=== PATIENT | male | born 1980 | race Caucasian/White ===

== ENCOUNTER 2017-02-08 17:59 | Inpatient (IN) ==
[2017-02-08] MEDS ORDERED: SALINE FLUSH 10ml SYRINGE IVF PRN (18:16)
[2017-02-08] MEDS ORDERED: NS 1,000 ML IV ONE ×2 (18:26→20:21)
--- OUTSIDE RECORDS SUMMARY | 2017-02-08 18:32 | External Medical Summary ---
:1980 Author Organization [employer] Care Team Providers Name Role Phone Kenneth Barahona Provider Role Unavailable Allergies No Known Allergies Problems No Known Problems Medications No Known Medications Results No Known Results Summary Purpose eClinicalWorks Submission
--- OUTSIDE RECORDS SUMMARY | 2017-02-08 18:32 | External Medical Summary ---
:1980 Author Organization [employer] Care Team Providers Name Role Phone Kenneth Barahona Provider Role Unavailable Allergies, Adverse Reactions, Alerts Substance Reaction Event Type N.K.D.A. Info Not Available Non Drug Allergy Problems Problem Type Condition Code Onset Dates Condition Status Assessment Esophageal dysmotility 530.5 Active Assessment GERD (gastroesophageal reflux 530.81 Active disease) Medications Medication Code Code Instructions Start End Date Status Dosage System Date ZyrTEC [facility] 81640-63 10 MG Orally 1 tablet as 04-43 [place] [address]-13 10 MG Orally 1 tablet 17-01 [place] [address]-01 daily 1 tablet 838 Pantoprazole [facility] 03640-23 40 MG Orallyfast September 01, 1 tablet Sodium 07- 30 minutes prior 2014 to break Fenofibrate [facility] 05189-83 not defined 95-90 Prevacid [facility] 13311-94 15 MG Orally 2 capsules 20-03 daily Procedures Procedure Coding System Code Date Office Visit, Janet Pt., Level 4 CPT-4 94962 September 01, 2014 Vital Signs Date/Time: September 01, 2014 Blood Pressure Systolic 120 mm Hg Weight 266.4 lbs Height 75 in BMI 33.29 Index Respiratory Rate 16 /min Cardiac Monitoring Heart Rate 72 /min Blood Pressure Diastolic 74 mm Hg Results No Known Results Summary Purpose eClinicalWorks Submission
--- OUTSIDE RECORDS SUMMARY | 2017-02-08 18:32 | External Medical Summary ---
:1980 Author Organization [employer] Care Team Providers Name Role Phone Kenneth Barahona Provider Role Unavailable Allergies, Adverse Reactions, Alerts Substance Reaction Event Type N.K.D.A. Info Not Available Non Drug Allergy Problems Problem Type Condition ICD-9 Code Onset Dates Condition Status Assessment Hiatal hernia 553.3 Active Assessment GERD (gastroesophageal reflux 530.81 Active disease) Medications Medication Code System Code Instructions Start Date End Date Status Dosage Singulair [facility] 65670-392 not defined 1-30 ZyrTEC NDC 0 not defined Fenofibrate [facility] 85186-145 not defined 5-90 Prevacid [facility] 89284-985 not defined 1-03 Multivitamin [facility] 23098-104 not defined 38 Procedures Procedure Coding System Code Date Office Visit, New Pt., Level 4 CPT-4 12648 June 30, 2014 Vital Signs Date/Time: June 30, 2014 Blood Pressure Systolic 130 mm Hg Weight 265 lbs Height 75 in BMI 33.12 Index Respiratory Rate 16 /min Cardiac Monitoring Heart Rate 80 /min Blood Pressure Diastolic 78 mm Hg Results No Known Results Summary Purpose eClinicalWorks Submission
--- OUTSIDE RECORDS SUMMARY | 2017-02-08 18:32 | External Medical Summary | Summary of Care ---
:1980 Author Name Zoe Velarde M.D. Address [address], [place] [id number] Care Team Providers Name Role Phone Zoe Velarde M.D. Unavailable Unavailable Mark Nagel Primary Care Provider Unavailable Unavailable Unavailable Unavailable Functional Status Functional Status Health Issues Name Dates Details Functional status health issues are not documented Status: Cognitive Status Health Issues Name Dates Details Cognitive status health issues are not documented Status: Problems Name Dates Details Tongue lesion (529.8, K14.8) Status: Active Tongue swelling (784.2, R22.0) Status: Active Medications Name Dates Details ZyrTEC Allergy 10 MG Oral Tablet TAKE 1 TABLET DAILY NEEDED. Refills: 0 Cy Velarde M.D. Started 30-Nov-2014 ActiveMontelukast Sodium 10 MG Oral Tablet TAKE 1 TABLET DAILY DIRECTED. Refills: 0 Started 30-Nov-2014 ActiveFenofibrate 120 MG Oral Tablet Refills: 0 Started 30-Nov-2014 ActivePantoprazole Sodium 40 MG Oral Tablet Delayed Release TAKE 1 TABLET 30 MINUTES BEFORE BREAKFAST DAILY. Quantity: 30 Refills: 11 Started 30-Nov-2014 Active Allergies and Adverse Reactions Name Dates Details No Known Drug Allergies Status: Active Past Medical History Name Dates Details History of Hay fever (477.9, J30.1) Status: Resolved History of hiatal hernia (V12.79, Z87.19) Status: Resolved Procedures Procedure Dates Details Procedures not documented Immunization Name Dates Details Immunizations not documented Family History Father Name Dates Details Family history of malignant neoplasm (V16.9, Z80.9) Status: Active Social History Name Dates Details Smoking StatusNever smoker Vital Signs Date Test Result Details 30-Nov-2014 11:06 BP Systolic 105 mm[Hg] Status: BP Diastolic 62 mm[Hg] Status: Heart Rate 73 /min Status: Weight 269 lb Status: Results Date Description Value Details Results not documented Plan of Care Planned Observations Name Dates Details Planned Goals not documented Goal Instructions Instructions not documented Encounters Appointment; Cy Velarde On 30-Nov-2014 Encounter Diagnosis: Problem not documented 11:00
[2017-02-08] MEDS ORDERED: CEFTRIAXONE (ER USE ONLY) 1 GM in NS 100 ML IV ONE (18:34)
[2017-02-08] MEDS ORDERED: ACETAMINOPHEN 500 MG TABLET PO PRN (18:49)
--- NOTE | 2017-02-08 19:24 | Emergency Department Report ---
General Adult HPI - General Chief complaint: Fever Stated complaint: fever, difficulty breathing, cough Time Seen by Provider: 02/08/17 18:16 Source: patient Mode of arrival: EMS Limitations: no limitations - History of Present Illness HPI narrative: 36-year-old male presents to the emergency department with a chief complaint of a productive cough that has been going on for the past week. Cough is productive of yellow sputum. He has also noted body aches and nausea with an occasional scattered episode of emesis. There is no blood in the emesis. Patient has been exposed to his and family who have been ill with sinus type symptoms. Patient was at home when his symptoms began. Symptoms have been persistent in nature since onset with a gradual progression. Patient does not note any exacerbating or remitting factors. No other complaints or associated symptoms. Patient was seen at the urgent care and recommended to come to the emergency department for further evaluation and treatment earlier today. - Related Data Home Medications Medication Instructions Recorded Confirmed Fenofibrate 160 mg PO DAILY #30 02/09/14 02/08/17 Cetirizine [Zyrtec] 10 mg PO DAILY 02/08/17 02/08/17 Montelukast [Singulair] 10 mg PO DAILY 02/08/17 02/08/17 Pantoprazole Tab [Protonix Tab] 40 mg PO DAILY 02/08/17 02/08/17 Allergies Allergy/AdvReac Type Severity Reaction Status Date / Time No Known Allergies Allergy Unverified 02/08/17 17:07 Review of Systems Constitutional: Reports: fever (subjective), chills Eyes: Denies: eye pain, vision change ENT: Denies: ear pain, throat pain Cardiovascular: Denies: chest pain, palpitations Respiratory: Reports: cough, dyspnea Gastrointestinal: Reports: nausea, vomiting. Denies: abdominal pain, diarrhea Genitourinary: Denies: urgency, dysuria Musculoskeletal: Denies: back pain, arthralgia Integumentary: Denies: erythema, rash Neurological: Denies: headache, numbness Psychiatric: Denies: anxiety, depression Endocrine: Denies: fatigue, heat or cold intolerance Hematological/Lymphatic: Denies: easy bleeding, easy bruising Allergic/Immunologic: Denies: facial swelling, urticaria PFSH Patient Stated Medical History Gastroesophageal Reflux Yes Disease Hiatal Hernia Yes Clinic Medical History (Last Updated 02/08/17 @ 17:09 by MEREDITH Vallejo High cholesterol (Acute Medical) Surgical History: wisdom teeth Family History: Reviewed and noncontributory. - Social History Smoking status: Never smoker Substance use type: does not use Alcohol intake frequency: does not drink Physical Exam - Limitations Limitations: no limitations - General General appearance: alert, in no apparent distress - Normal Exams: Head:: Normocephalic without trauma Eyes:: Pupils are PERRLA w/ EOMI, No scleral icterus, irritation, or foreign bodies noted ENMT:: No facial trauma, nasal exudates, pharyngeal erythema, or exudates are noted Dental: No fractured, loose, or missing teeth noted Neck:: Full range of motion, without adenopathy, JVD, bruits or thyromegaly Chest/Respirations:: with good airflow, and symmetry bilaterally (course breath sounds bibasilar.) Cardiovascular:: Regular rate and rhythm, without murmur or gallop, Pulses 2+ all extremities, capillary refill, <2 seconds all extremities Abdomen:: Bowel sounds positive, soft, non-tender, non-distended, no hepatosplenomegaly, masses or bruits noted Lymphatic:: No lymphadenopathy, or lymphedema noted Musculoskeletal:: No tenderness, or deformity noted, good range of motion, all extremities Integumentary:: No rashes, hives, or bruising noted, hair and nails, without abnormality Neurological:: Patient is alert, and oriented, cranial nerves, motor/sensory/ cerebellar, exams w/o gross deficits, to observation Psychiatric:: Patient exhibits, appropriate attention, emotion and affect Course Vital Signs Pulse Oximetry 96 02/08/17 18:02 Temperature 98.0 F 02/09/17 00:00 Pulse Rate 86 02/09/17 00:00 Respiratory Rate 18 02/09/17 00:00 Blood Pressure 123/67 02/09/17 00:00 Pulse Oximetry 95 02/09/17 00:00 Medical Decision Making - MDM Narrative Medical decision making narrative: Labs / imaging were discussed in detail with the patient and family and questions are answered. Patient is given 1 g of Rocephin intravenously within his 1st hour of arrival to the emergency Department. Patient is given Zithromax 500 mg IV 1 as well. Patient is given acetaminophen 1 g by mouth 1 for treatment of fever. Patient is given 2 L normal saline intravenously. Patient is markedly improved at time of reassessment. Patient and family are not comfortable going home. Patient requests to be observed in the hospital. Patient is discussed with [facility] and will be admitted to the service of Dr. Garza in improved condition. Patient and family are in agreement with the current plan of management. Patient is admitted to the hospital in improved condition. No further orders from accepting physician who is in agreement with the current plan of management. Patient was never hypotensive and had a lactic acid less than 4. - Differential Diagnosis pneumonia, dehydration, UTI, viral for syndrome - Lab Data Result diagrams: 02/08/17 18:23 02/08/17 18:23 Lab Results 02/08/17 02/08/17 02/08/17 Range/Units 18:23 18:23 18:23 WBC 10.8 (4.5-11.0) T/MM3 RBC 5.18 (4.50-5.90) M/MM3 Hgb 14.3 (13.5-17.5) GM/DL Hct 42.4 (41-53) % MCV 81.9 (80-100) UM3 MCH 27.6 (26-34) UUG MCHC 33.7 (31-37) GM/DL RDW Std Deviation 38.7 (36.9-50.2) FL Plt Count 297 (130-400) T/MM3 MPV 10.3 (9.4-12.4) UM3 Immature Gran % (Auto) Not performed Neut % (Auto) Not performed Lymph % (Auto) Not performed [place] % (Auto) Not performed Eos % (Auto) Not performed Baso % (Auto) Not performed Neut # (Auto) Not performed Lymph # (Auto) Not performed [place] # (Auto) Not performed Eos # (Auto) Not performed Baso # (Auto) Not performed Abs Immat Gran (auto) Not performed Neutrophils % (Manual) 83.0 H (33-66) % Band Neutrophils % 9.0 H (0-6) % Lymphocytes % (Manual) 4.0 L (23-45) % Monocytes % (Manual) 4.0 (0-9.0) % Neutrophils # (Manual) 9.0 H (1.8-7.7) T/MM3 Band Neutrophils # 1.0 T/MM3 Lymphocytes # (Manual) 0.4 L (1-4.8) T/MM3 Monocytes # (Manual) 0.4 (0-0.8) T/MM3 RBC Morph Comment Normal Turbidity < 20 (0-20) Sodium 145 H (134-144) MEQ/L Potassium 3.6 (3.6-5) MEQ/L Chloride 107 (98-107) MEQ/L Carbon Dioxide 20 L (22-30) MEQ/L Anion Gap 18 H (5-15) MEQ/L BUN 18.0 (9-20) MG/DL Creatinine 1.2 (0.8-1.5) MG/DL GFR Calculation 69 BUN/Creatinine Ratio 15 (6-26) RATIO Glucose 101 (75-110) MG/DL Calculated Osmolality 281 H (261-280) MOSM/KG Calcium 10.0 (8.4-10.2) MG/DL Total Bilirubin 0.40 (0.20-1.30) MG/DL Icterus Index < 2 (0-7) AST 44 (17-59) U/L ALT 65 (21-72) U/L Alkaline Phosphatase 58 (38-126) U/L Troponin I < 0.012 (0-0.12) ng/ml Total Protein 8.4 H (6.3-8.2) G/DL Albumin 4.8 (3.5-5.0) G/DL Globulin 3.6 (2.4-3.6) G/DL Albumin/Globulin Ratio 1.3 (1.1-2.2) RATIO Plasma Lactate 1.1 (0.6-2.2) MMOL/L Procalcitonin 0.40 NG/ML Specimen Hemolysis < 15 (0-25) Ur Collection Type Urine Color (YELLOW) Urine Clarity Urine pH (5.0-8.0) Ur Specific [place] (1.015-1.025) Urine Protein (NEGATIVE) Urine Glucose (UA) (NEGATIVE) Urine Ketones (NEGATIVE) Urine Occult Blood (NEGATIVE) Urine Nitrate (NEGATIVE) Urine Bilirubin (NEGATIVE) Urine Urobilinogen (NORMAL) EU/DL Ur Leukocyte Esterase (NEGATIVE) Urine RBC (0-3) /HPF Urine WBC (0-5) /HPF Ur Squamous Epith Cells Urine Bacteria (NEGATIVE) Urine Mucus Ur Culture Indicated? 02/08/17 Range/Units 19:26 WBC (4.5-11.0) T/MM3 RBC (4.50-5.90) M/MM3 Hgb (13.5-17.5) GM/DL Hct (41-53) % MCV (80-100) UM3 MCH (26-34) UUG MCHC (31-37) GM/DL RDW Std Deviation (36.9-50.2) FL Plt Count (130-400) T/MM3 MPV (9.4-12.4) UM3 Immature Gran % (Auto) Neut % (Auto) Lymph % (Auto) [place] % (Auto) Eos % (Auto) Baso % (Auto) Neut # (Auto) Lymph # (Auto) [place] # (Auto) Eos # (Auto) Baso # (Auto) Abs Immat Gran (auto) Neutrophils % (Manual) (33-66) % Band Neutrophils % (0-6) % Lymphocytes % (Manual) (23-45) % Monocytes % (Manual) (0-9.0) % Neutrophils # (Manual) (1.8-7.7) T/MM3 Band Neutrophils # T/MM3 Lymphocytes # (Manual) (1-4.8) T/MM3 Monocytes # (Manual) (0-0.8) T/MM3 RBC Morph Comment Turbidity (0-20) Sodium (134-144) MEQ/L Potassium (3.6-5) MEQ/L Chloride (98-107) MEQ/L Carbon Dioxide (22-30) MEQ/L Anion Gap (5-15) MEQ/L BUN (9-20) MG/DL Creatinine (0.8-1.5) MG/DL GFR Calculation BUN/Creatinine Ratio (6-26) RATIO Glucose (75-110) MG/DL Calculated Osmolality (261-280) MOSM/KG Calcium (8.4-10.2) MG/DL Total Bilirubin (0.20-1.30) MG/DL Icterus Index (0-7) AST (17-59) U/L ALT (21-72) U/L Alkaline Phosphatase (38-126) U/L Troponin I (0-0.12) ng/ml Total Protein (6.3-8.2) G/DL Albumin (3.5-5.0) G/DL Globulin (2.4-3.6) G/DL Albumin/Globulin Ratio (1.1-2.2) RATIO Plasma Lactate (0.6-2.2) MMOL/L Procalcitonin NG/ML Specimen Hemolysis (0-25) Ur Collection Type Urine, clean catch Urine Color Yellow (YELLOW) Urine Clarity Clear Urine pH 7.0 (5.0-8.0) Ur Specific [place] 1.015 (1.015-1.025) Urine Protein Negative (NEGATIVE) Urine Glucose (UA) Negative (NEGATIVE) Urine Ketones Negative (NEGATIVE) Urine Occult Blood 2+ A (NEGATIVE) Urine Nitrate Negative (NEGATIVE) Urine Bilirubin Negative (NEGATIVE) Urine Urobilinogen 1.0 (NORMAL) EU/DL Ur Leukocyte Esterase Negative (NEGATIVE) Urine RBC 3-5 H (0-3) /HPF Urine WBC 1-3 (0-5) /HPF Ur Squamous Epith Cells 5-10 Urine Bacteria Trace H (NEGATIVE) Urine Mucus Present Ur Culture Indicated? Cult not indicated - Radiology Data CXR - no obvious acute process. Potential viral pattern. CTA chest: No PE. Left lower lobe airspace disease consistent with pneumonia. - EKG Data EKG #1 EKG results narrative: Sinus rhythm. 92 bpm. No STEMI. Disposition Clinical Impression: PNEUMONIA Disposition: 02 To [facility] Acute Care Condition: Stable Time of Disposition: 20:50 - Seen By: physician
[2017-02-08] MEDS ORDERED: NS 100 ML ONE (19:44)
[2017-02-08] MEDS ORDERED: SALINE FLUSH 10ml SYRINGE ONE (19:44)
[2017-02-08] MEDS ORDERED: IOHEXOL 350mg/ml 100ml INJECTION ONE (19:44)
[2017-02-08] MEDS ORDERED: AZITHROMYCIN IV 500 MG in NS 250ml 250 ML IV ONE (20:48)
[2017-02-08 21:46] VITALS: BMI 34.9
[2017-02-08] MEDS ORDERED: AZITHROMYCIN IV 500 MG in NS 250ml 250 ML IV SCH (22:10)
[2017-02-08] MEDS ORDERED: CEFTRIAXONE 2 GM INJECTION IV SCH (22:10)
--- NOTE | 2017-02-08 22:37 | History & Physical Report ---
<José Miguel Schwartz Johnathan - Last Filed: 02/08/17 22:27> History of Present Illness Date: 02/08/17 Chief complaint: short of breath HPI: This is a 36 y/o male who was exposed to respirtory illness last week at home with his children and . He developed a cough and shortness of breath ths week that worsened today. He presented to an urgent care setting and was found to be mild hypoxic and tachycardic. He was sent to the ED and ultimately had a CT of his chest to exclude PE that was neg for PE but early LLL infiltrate. The pateint's labs demonstrated normal WBC count but a 9% bandemia. The pateint 's tachycardia responded to fluids but continued to be ill in appearance and at this time will be admitted for further therapy Review of Systems Review of systems: mild headache, congestion, sore throat, cough productive occasionally colored sputum, fever, chills and sweats, pleuritic chest pain. no nausea or vomiting, no change in bowel movements, no skin rashes, no focal neuro complaints. 10 point ROS otherwise neg except for outlined above. [facility] Medical History (Last Updated 02/08/17 @ 17:09 by Dwight Contreras CNA) High cholesterol (Acute Medical) Surgical History: wisdom teeth - Social History Smoking status: Never smoker Medications Home Medications Medication Instructions Recorded Confirmed Type Fenofibrate 160 mg PO DAILY #30 02/09/14 02/08/17 History Cetirizine [Zyrtec] 10 mg PO DAILY 02/08/17 02/08/17 History Montelukast [Singulair] 10 mg PO DAILY 02/08/17 02/08/17 History Pantoprazole Tab [Protonix Tab] 40 mg PO DAILY 02/08/17 02/08/17 History Allergies Allergy/AdvReac Type Severity Reaction Status Date / Time No Known Allergies Allergy Unverified 02/08/17 17:07 Exam Vital Signs: Temperature 98.1 F 02/08/17 21:41 Pulse Rate 77 02/08/17 21:41 Respiratory Rate 18 02/08/17 21:41 Blood Pressure 120/67 02/08/17 21:41 Pulse Oximetry 96 02/08/17 21:41 Telemetry Rhythm: Sinus Rhythm Height/Weight/BMI: Height 1.91 m Weight 126.7 kg Body Mass Index 34.9 - Constitutional Present: mild distress, well nourished, well developed, obese, disheveled, cooperative - Routine HEENT Exam Head: Present: normocephalic, atraumatic Eye: Present: EOMI, conjunctivae pink ENT: Present: mucous membranes dry - Routine Neck Exam Present: supple, full ROM - Routine Respiratory Exam Comments: diminished breath sounds but no rhonchi appreciated. bilaterally - Routine Cardiovascular Exam Present: RRR, no murmur - Routine Abdominal Exam Present: soft, normoactive bowel sounds, non distended, non tender - Routine Extremities Exam Present: no edema, full ROM. Absent: cyanosis, clubbing Results - Labs CBC & Chem 7: 02/08/17 18:23 02/08/17 18:23 Labs: reviewed - Imaging and Cardiology CT scan - chest Additional comments: changes in left lower lobe, consider pneumonitis Assessment and Plan (1) Community acquired pneumonia Current visit: Yes Status: Acute 02/08/17 22:56 patient with resp sx. CT suggest early infiltrate, pneumonitis. check resp panel. zithromax, rocephin iv, albuerol prn, reassess with labs in am. all cultures ordered (2) Sepsis Current visit: Yes Status: Acute 02/08/17 22:57 tachy, fever, bandemia. LA okay. ivf, antibitoics, repeat markers in am. should clear easily (3) GERD (gastroesophageal reflux disease) Current visit: Yes Status: Acute 02/08/17 22:58 continue PPI, stable otherwise (4) Morbid obesity Current visit: Yes Status: Acute 02/08/17 22:58 to be aware of, no acute issues otherwise DVT Prophylaxis: SCD's, Lovenox GI Prophylaxis: Protonix Resuscitation Status: Full Code Hospital Course Summary Disclaimer: The visit summary below is not to be considered part of the above Progress Note. <Karlos Cade - Last Filed: 02/09/17 12:56> History of Present Illness Date: 02/09/17 [facility] Patient Stated Medical History Gastroesophageal Reflux Yes Disease Hiatal Hernia Yes Clinic Medical History (Last Updated 02/08/17 @ 17:09 by Dwight Contreras CNA) High cholesterol (Acute Medical) Exam Vital Signs: Temperature 97.3 F 02/09/17 08:05 Pulse Rate 62 02/09/17 08:05 Respiratory Rate 16 02/09/17 09:23 Blood Pressure 102/60 02/09/17 08:05 Pulse Oximetry 98 02/09/17 09:23 Height/Weight/BMI: Height 1.91 m Weight 127.4 kg Body Mass Index 34.9 Results - Labs CBC & Chem 7: 02/09/17 04:30 02/09/17 04:30 Microbiology Results: Microbiology 02/09/17 00:29 Sputum, Expectorated Gram Stain - Final 02/09/17 00:29 Sputum, Expectorated Sputum Culture - Preliminary Culture Initiated - Results Pending Assessment and Plan (1) Community acquired pneumonia Current visit: Yes Status: Acute (2) Sepsis Current visit: Yes Status: Acute (3) GERD (gastroesophageal reflux disease) Current visit: Yes Status: Acute (4) Morbid obesity Current visit: Yes Status: Acute Assessment and Plan: I have independently interviewed and examined pt. Chart reviewed. Reviewed above not and concur. CC: SOA, cough, difficulty breathing HPI: 36 y/o WM has 1 week history of increasing chest congestion and cough. Has been producing thick yellow sputum, hard to clear. Feels symptoms started 1 week ago with a 'cold' but continued to progress. Continued his Rx medications for allergies, but did not start other medications. and kids were ill with respiratory symptoms last week. Has been working swing shifts which has run him down as well. Day of presentation, started having sweats and chills at home. Was much more difficult to breath-very congested and could not get air in. Went to drink hot tea to help his symptoms, but not able to keep it down-- immediately had emesis. Notes JESSICA from his coughing. Urine dark. Feeling very weak, unsteady and dizzy with positional changes. Went to for evaluation. O2 Sat decreased at 89% and HR in the 130-140 range. Sent to ED. HR decreased with IVF. CTA not showing PE, but infiltrate noted. 9% bands present. With hydration and antibiotics, felt slightly better but not to the point of being able to manage at home. PHMx: OAS, HDL, Seasonal allergies, GERD, Obesity, Hx wisdom tooth extraction ALL: NKDA Meds: see MAR SHx: x9 years. No smoking. 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 Dr Nagel PCP. FHx: Mother at 64 from pulmonary fibrosis. DM and NHL in family. ROS: As in HPI, Remainder of 10 point ROS negative. Exam GEN: [id number] Appears tired and weak HEENT: NC/AT PERRLA EOMI MMM NECK: supple, no tracheal deviation CV: regular Lungs: decrease bilaterally, upper airway noises. Frequent harsh cough. AB: soft Obese NT/ND BS decreased. No rebound or guarding. EXT: No C/C/E. Pulses intact bilaterally Neuro: CN II-XII intact. No focal motor deficits MSE: awake alert appropriate, though linear Skin: Warm and moist. MS: normal muscle mass and tone Lab: reviewed Assessment Community acquired pneumonia Bandemia Tachycardia (resolve post IVF) Hypernatremia (POA) Dehydration (POA) Hypoxia at clinic - resolved Allergies DAMIEN treated with CPAP HDL GERD Obesity Plan [place] [facility] [place] his community acquired pneumonia with secondary tachycardia and hypoxia. Concern for developing sepsis, but SIRS markers resolved in ED with treatment. Rocephin and azithromycin for antimicrobial coverage. IVF of NS at 125 for hydration. Albuterol prn wheezing/SOA. Monitor oxygen saturations. Lovenox for DVT prevention. Full code as per his requests. Care to return to Dr Nagel at time of discharge [place] [facility] [place] 02/08/17 Feeling better, but still with frequent cough and congestion. Urinate less dark. WBC showing decreased. Potassium decreased. Continue Rocephin for antimicrobial coverage, changing azithromycin to oral as IV was bothering his vein. Add routine Mucinex DM to decrease cough and help thin secretions. Phenergan with codeine as needed for severe cough. Acapella to help loosen secretions. Restart home medications. Change IVF to 1/2NS with 20mEq KCl at 75cc/hr to help normalize sodium and potassium. Recheck lab in am. Hospital Course Summary Disclaimer: The visit summary below is not to be considered part of the above Progress Note. Hospital Course: 02/08/17 Admission Assessment Community acquired pneumonia Bandemia Tachycardia (resolve post IVF) Hypernatremia (POA) Dehydration (POA) Hypoxia at clinic - resolved Allergies DAMIEN treated with CPAP HDL GERD Obesity Plan [place] [facility] [place] of his community acquired pneumonia with secondary tachycardia and hypoxia. Concern for developing sepsis, but SIRS markers resolved in ED with treatment. Rocephin and azithromycin for antimicrobial coverage. IVF of NS at 125 for hydration. Albuterol prn wheezing/SOA. Monitor oxygen saturations. Lovenox for DVT prevention. Full code as per his requests. Care to return to Dr Nagel at time of discharge [place] [facility] [place] 02/08/17 Feeling better, but still with frequent cough and congestion. Urinate less dark. WBC showing decreased. Potassium decreased. Continue Rocephin for antimicrobial coverage, changing azithromycin to oral as IV was bothering his vein. Add routine Mucinex DM to decrease cough and help thin secretions. Phenergan with codeine as needed for severe cough. Acapella to help loosen secretions. Restart home medications. Change IVF to 1/2NS with 20mEq KCl at 75cc/hr to help normalize sodium and potassium. Recheck lab in am.
[2017-02-08] MEDS: ALBUTEROL 2.5mg/3ml (0.083%) NEB AEROSOL PRN (23:11)
[2017-02-08] MEDS: NS 1,000 ML IV SCH (23:36)
[2017-02-08] MEDS: ENOXAPARIN 40 MG/0.4 ML INJECTION SQ SCH (23:42)
[2017-02-09] MEDS: NS 1,000 ML IV SCH ×2 (07:14→07:49)
[2017-02-09] MEDS: ALBUTEROL 2.5mg/3ml (0.083%) NEB AEROSOL PRN ×2 (09:21→19:06)
[2017-02-09] MEDS: PANTOPRAZOLE 40 MG TABLET PO SCH (11:58)
[2017-02-09] MEDS ORDERED: PROMETHAZINE/CODEINE ORAL LIQUID 5ml PO PRN (12:29)
[2017-02-09] MEDS ORDERED: ONDANSETRON 4 MG/2 ML INJECTION IVP PRN (12:30)
[2017-02-09] MEDS: 1/2 NS with KCL 20mEq 1,000 ML IV SCH (12:55)
[2017-02-09] MEDS ORDERED: INFLUENZA VAC QIV 2017-18 (Fluarix*)(>=3yo) 0.5ml IM ONE (12:57)
[2017-02-09] MEDS: GUAIFENESIN/D-METHORPHAN 600mg/30mg TABLET PO SCH ×2 (14:52→21:34)
[2017-02-09] MEDS: CETIRIZINE 10 MG TABLET PO SCH (14:52)
[2017-02-09] MEDS: MONTELUKAST 10 MG TABLET PO SCH (14:52)
[2017-02-09] MEDS: FENOFIBRATE 160 MG TABLET PO SCH (14:52)
[2017-02-09] MEDS ORDERED: CEFTRIAXONE 1 GM in NS 100 ML IV SCH (18:00)
[2017-02-09] MEDS: AZITHROMYCIN 500 MG TABLET PO SCH (18:53)
[2017-02-09] MEDS ORDERED: ACETAMINOPHEN 500 MG TABLET PO PRN (19:28)
[2017-02-09] MEDS: ENOXAPARIN 40 MG/0.4 ML INJECTION SQ SCH (21:34)
[2017-02-10 00:33] VITALS: PULSE 76; RESP 16
[2017-02-10] MEDS: 1/2 NS with KCL 20mEq 1,000 ML IV SCH (02:58)
[2017-02-10 08:18] VITALS: BP 124/69; TEMP 97.2
[2017-02-10] MEDS: FENOFIBRATE 160 MG TABLET PO SCH (09:49)
[2017-02-10] MEDS: CETIRIZINE 10 MG TABLET PO SCH (09:49)
[2017-02-10] MEDS: MONTELUKAST 10 MG TABLET PO SCH (09:49)
[2017-02-10] MEDS: GUAIFENESIN/D-METHORPHAN 600mg/30mg TABLET PO SCH (09:49)
[2017-02-10] MEDS: PANTOPRAZOLE 40 MG TABLET PO SCH (09:49)
[2017-02-10] MEDS: AZITHROMYCIN 500 MG TABLET PO SCH (09:49)
[2017-02-10 10:11] VITALS: O2SAT 96
--- NOTE | 2017-02-10 10:11 | XRay Report ---
INDICATION: Cough for one week with fevers and chills PROCEDURE: CHEST 2-VIEWS UPRIGHT (PA & LAT) Encounter: Initial COMPARISON: CT angiogram of the chest from the same date FINDINGS: Findings opacity in the left lower lobe is better seen by CT along with linear scarring or atelectasis. Right lung is clear. No pleural effusion or pneumothorax. Heart size and mediastinal contours are within normal limits. Pulmonary vascularity is normal. No significant skeletal abnormality. Impression: Left lower lobe pneumonia. .
--- NOTE | 2017-02-10 10:11 | CT Scan Report ---
Indication: Dyspnea, hypoxia PROCEDURE: CT angio pulm emboli: Encounter: Initial Comparison: Chest x-ray from the same date Technique: Axial CT pulmonary angiographic phase images were performed through the chest after the administration of intravenous contrast. Coronal and Sagittal MIP reconstructed images were created and reviewed. Automated Exposure Control and Iterative Reconstruction dose reducing techniques were utilized. Contrast: Omnipaque 350 74 mL Findings: Pulmonary arteries: Exam is diagnostic to the segmental pulmonary arterial level. No definite filling defects identified to confirm a pulmonary embolus. Subsegmental pulmonary arteries cannot be well evaluated due to contrast bolus timing. Other findings: Scattered groundglass opacities in the left lower lobe. The remaining lung denney are clear. No pleural effusion or pneumothorax. The central airways are patent. No axillary or mediastinal lymphadenopathy. Heart size is normal. No paracardial effusion. Severe fatty infiltration of the liver. Impression: 1. No pulmonary embolus. 2. Left lower lobe pneumonia. There is a preliminary report by virtual radiologic. .
--- NOTE | 2017-02-10 10:42 | Discharge Instructions ---
Discharge Plan - Med Rec/Dispo Referrals/Follow Up: Mark Nagel MD [Family Provider] - 1 Week Additional Instructions: Use Acapella 4 times a day for 1 week, then as needed for chest congestion. Use Mucinex DM twice a day for one week, then as needed for cough and congestion. Phenergan with codeine can help decrease severe cough, but watch for sedation. Consider using nasal flush to held decrease sinus congestions. Return to work on 02/13/17 - recommend no flying until 02/25. Prescriptions: New Albuterol Neb (0.083%) [Proventil Neb (0.083%)] 2.5 mg AEROSOL RTQID PRN #30 neb PRN Reason: Wheezing Guaifenesin/Dm [Mucinex Dm] 1 tab PO BID #14 tab Promethazine + Cod Liq [Phenergan + Codeine] 5 ml PO Q6HR PRN #120 po.syringe PRN Reason: Cough Acetaminophen [Tylenol] 500 mg PO Q6H PRN tablet PRN Reason: Discomfort Levofloxacin [Levaquin] 750 mg PO DAILY 7 Days #7 tab Continue Fenofibrate 160 mg PO DAILY #30 Montelukast [Singulair] 10 mg PO DAILY Cetirizine [Zyrtec] 10 mg PO DAILY Pantoprazole Tab [Protonix Tab] 40 mg PO DAILY - Disposition 01 Discharged Home, Self-Care
--- NOTE | 2017-02-10 10:48 | Discharge Summary ---
<Kay Beltran - Last Filed: 02/10/17 10:43> Discharge Information Date of admission: 02/08/17 21:13 Anticipated date of discharge: 02/10/17 Attending Physician: Karlos Cade MD Primary care physician: Mark Nagel MD - Discharge Diagnosis (1) Community acquired pneumonia Status: Acute (2) Sepsis Status: Acute (3) GERD (gastroesophageal reflux disease) Status: Chronic (4) Morbid obesity Status: Chronic - Laboratory Labs: 02/10/17 04:21 02/10/17 04:21 - Microbiology Microbiology 02/09/17 00:29 Sputum, Expectorated Gram Stain - Final 02/09/17 00:29 Sputum, Expectorated Sputum Culture - Preliminary Early growth 02/09/17 00:29 Urine Legionella Urinary Antigen - Final - Radiology Radiology: CTA- No PE. LLL PNA. Severe fatty liver disease. History of Present Illness HPI: This is a 36 y/o male who was exposed to respiratory illness last week at home with his children and . He developed a cough and shortness of breath ths week that worsened today. He presented to an urgent care setting and was found to be mild hypoxic and tachycardic. He was sent to the ED and ultimately had a CT of his chest to exclude PE that was neg for PE but early LLL infiltrate. The pateint's labs demonstrated normal WBC count but a 9% bandemia. The patient 's tachycardia responded to fluids but continued to be ill in appearance and at this time will be admitted for further therapy Objective Vital signs: Temperature 97.2 F 02/10/17 08:00 Pulse Rate 76 02/10/17 08:00 Respiratory Rate 16 02/10/17 08:00 Blood Pressure 124/69 02/10/17 08:00 Pulse Oximetry 96 02/10/17 10:06 Rhythm: Normal Sinus Rhythm Height/Weight/BMI: Height 1.91 m Weight 127.4 kg Body Mass Index 34.9 - Constitutional Present: no acute distress, well nourished, well developed, average body habitus - Routine HEENT Exam Head: Present: normocephalic, atraumatic Eye: Present: EOMI, PERRL, normal accommodation ENT: Present: mucous membranes moist - Routine Respiratory Exam Present: decreased breath sounds, CTA bilaterally. Absent: rhonchi, stridor, wheezes, crackles - Routine Cardiovascular Exam Present: RRR, S1, S2 - Routine Abdominal Exam Present: soft, normoactive bowel sounds, non distended, non tender - Routine Extremities Exam Present: no edema, non tender, full ROM - Routine Back/Spine/Pelvis Exam Back/Spine: Present: full ROM - Routine Musculoskeletal Exam Musculoskeletal: Present: no clubbing or cyanosis, no erythema, moving extremities well - Routine Skin Exam Present: intact, dry, warm - Routine Neurological Exam Present: alert, oriented X3 - Routine Psychiatric Exam Present: normal affect, normal thought process, cooperative, good insight Hospital Course This is a general summary of the patient's hospital course. For more details refer to the complete medical record. Hospital course: 02/08/17 Admission Assessment Community acquired pneumonia Bandemia Tachycardia (resolve post IVF) Hypernatremia (POA) Dehydration (POA) Hypoxia at clinic - resolved Allergies DAMIEN treated with CPAP HDL GERD Obesity Plan Inpatient admission to [facility] [place] for treatment of his community acquired pneumonia with secondary tachycardia and hypoxia. Concern for developing sepsis, but SIRS markers resolved in ED with treatment. Rocephin and azithromycin for antimicrobial coverage. IVF of NS at 125 for hydration. Albuterol prn wheezing/SOA. Monitor oxygen saturations. Lovenox for DVT prevention. Full code as per his requests. Care to return to Dr Nagel at time of discharge from [facility] [place]. 02/08/17 Feeling better, but still with frequent cough and congestion. Urinate less dark. WBC showing decreased. Potassium decreased. Continue Rocephin for antimicrobial coverage, changing azithromycin to oral as IV was bothering his vein. Add routine Mucinex DM to decrease cough and help thin secretions. Phenergan with codeine as needed for severe cough. Acapella to help loosen secretions. Restart home medications. Change IVF to 1/2NS with 20mEq KCl at 75cc/hr to help normalize sodium and potassium. Recheck lab in am. 02/10/17 Patient is feeling much better. D/W him and his (via phone). They are both anxious for DC today. Pt denies any SOA. No fever overnight. No hypoxia. Cough is mildly productive, but fairly controlled. He does have a nebulizer at home, but will need adult administration set- will be given one he is using here. Eating and drinking well. Chart is reviewed at length. Appears stable for DC home. Will give Levaquin x 7 more days for aggressive pulm coverage given sepsis. Time spent with patient: discharge greater than 30 minutes DVT Prophylaxis: SCD's, Lovenox GI Prophylaxis: Protonix Discharge Plan - Med Rec/Dispo Referrals/Follow Up: Mark Nagel MD [Family Provider] - 1 Week Additional Instructions: Use Acapella 4 times a day for 1 week, then as needed for chest congestion. Use Mucinex DM twice a day for one week, then as needed for cough and congestion. Phenergan with codeine can help decrease severe cough, but watch for sedation. Consider using nasal flush to held decrease sinus congestions. Return to work on 02/13/17 - recommend no flying until 02/25. Prescriptions: New Albuterol Neb (0.083%) [Proventil Neb (0.083%)] 2.5 mg AEROSOL RTQID PRN #30 neb PRN Reason: Wheezing Guaifenesin/Dm [Mucinex Dm] 1 tab PO BID #14 tab Promethazine + Cod Liq [Phenergan + Codeine] 5 ml PO Q6HR PRN #120 po.syringe PRN Reason: Cough Acetaminophen [Tylenol] 500 mg PO Q6H PRN tablet PRN Reason: Discomfort Levofloxacin [Levaquin] 750 mg PO DAILY 7 Days #7 tab Continue Fenofibrate 160 mg PO DAILY #30 Montelukast [Singulair] 10 mg PO DAILY Cetirizine [Zyrtec] 10 mg PO DAILY Pantoprazole Tab [Protonix Tab] 40 mg PO DAILY - Disposition 01 Discharged Home, Self-Care <Karlos Cade - Last Filed: 02/10/17 11:22> Discharge Information Date of admission: 02/08/17 21:13 Attending Physician: Karlos Cade MD Primary care physician: Mark Nagel MD - Discharge Diagnosis (1) Community acquired pneumonia Status: Acute (2) Sepsis Status: Acute (3) GERD (gastroesophageal reflux disease) Status: Chronic (4) Morbid obesity Status: Chronic - Laboratory Labs: 02/10/17 04:21 02/10/17 04:21 - Microbiology Microbiology 02/09/17 00:29 Sputum, Expectorated Gram Stain - Final 02/09/17 00:29 Sputum, Expectorated Sputum Culture - Preliminary Early growth 02/09/17 00:29 Urine Legionella Urinary Antigen - Final Objective Vital signs: Temperature 97.2 F 02/10/17 08:00 Pulse Rate 76 02/10/17 08:00 Respiratory Rate 16 02/10/17 08:00 Blood Pressure 124/69 02/10/17 08:00 Pulse Oximetry 96 02/10/17 10:06 Height/Weight/BMI: Height 1.91 m Weight 127.4 kg Body Mass Index 34.9 Hospital Course This is a general summary of the patient's hospital course. For more details refer to the complete medical record. Discharge Plan - Med Rec/Dispo - Attestation Attestation Narrative: 02/10/17 11:18 I have independently interviewed and examined patient prior to discharge. Chart reviewed. Case discussed with my SOLAR ELECTRIC PRACTITIONER. Care plan developed with my supervision. Agree with above. Doing much better today. Still with cough/congestion. No temp elevation or f/c. Maintaining saturations well on RA. WBC normal. Lungs: decrease but improved air flow. No crackles or wheezed. Breathing comfortably on RA. CV: regular Ab: soft nt/nd MSE: awake alert appropriate Plan: Will discharge to home. Levaquin for 1 week. Mucinex DM and Acapella routinely for 1 week, then as needed. Return to work on 02/13/17. Follow up with Dr Nagel in 1 week for evaluation. See orders for details.
--- NOTE | 2017-02-10 11:06 | Work/School Release ---
Work/School Release - Date Date: 02/10/17 - Work Release Remain off work/school for:: Mr Keane was hospitalized at [facility] from February 08 until February 10, 2017. He may return to work on February 13, 2017. He will need follow up appointment with his primary care physician in 1 week for follow up of his acute illness. He may resume his normal work activities, other than recommend against flying for 2 week (May resume this activity on February 25, 2017) due to sinus congestion present during hospitalization than could be exacerbated with flying.
[2017-02-10] MEDS ORDERED: INFLUENZA VAC. INJ. ADMIN CHARGE INJ ONE (11:44)
== END 2017-02-10 11:45 | disposition home or self-care (01) | DRG 194 ==
LOC: ED 17:59 → MED 21:13
PROVIDERS: ADMIT Emergency Medicine; ATTEND Hospitalist